=== PATIENT | female | born 1985 | race Caucasian/White ===

== ENCOUNTER 2022-04-24 09:51 | Outpatient (RCR) | payer OTHER ==
[~2022-04-24 09:51] MED LIST: LEVEMIR100 U/ML SQ; MIRENA52 MG IY; NORCO 325 MG-51 TAB PO; PRENATAL VITAMI1 TA5 PO
== END 2022-04-25 ==
LOC: WSOH
DX: Z77.21 Contact with and (suspected) exposure to potentially hazardous body fluids (principal); W46.0XXA Contact with hypodermic needle, initial encounter; Y99.0 Civilian activity done for income or pay